=== PATIENT | female | born 1965 | race Caucasian/White ===

== ENCOUNTER → 2017-05-18 | Outpatient (CLI) | payer BC ==
[~2017-05-18] MED LIST: BND25X PO; PRED20TA PO; RTL20 PO
== END | disposition home or self-care (01) ==
LOC: C.PAPS 08:59
PROVIDERS: ATTEND Obstetrics & Gynecology
DX: Z01.419 Encounter for gynecological examination (general) (routine) without abnormal findings (principal)

== ENCOUNTER → 2017-11-25 | Outpatient (CLI) | payer BC ==
--- NOTE | 2017-11-25 17:31 | EXERCISE STRESS TEST ---
EXERCISE TREADMILL TEST STUDY REQUESTED BY: Dr. Sandro Coker. INDICATION: Atypical chest discomfort. RESULTS: BASELINE EKG - normal sinus rhythm with no significant ST abnormalities. Ventricular rate of 61. STRESS EKG - patient exercised for 12 minutes and 37 seconds achieving 14.5 mets. With this, her heart rate isaura from 69 to a maximum heart rate of 169 representing 100% of her maximum predicted heart rate. Her blood pressure isaura from 125/82 up to 151/76. She had no significant chest pain. This study was completed due to overall fatigue. With exercise, there were no significant ST abnormalities. There were no significant exercise-induced arrhythmias. IMPRESSION: 1. Negative exercise stress echocardiogram for ischemia. 2. Excellent functional capacity. The patient exercised 12 minutes 37 seconds achieving 14.5 mets. 3. No exercise induced chest pain. Normal hemodynamic response to exercise. 4. Blackmon treadmill score of 12 representing low risk study for adverse cardiac events. MTDD
== END | disposition home or self-care (01) ==
LOC: C.CPL 09:10
PROVIDERS: ATTEND Family Medicine
DX: R07.9 Chest pain, unspecified (principal)

== ENCOUNTER → 2018-05-01 | Outpatient (CLI) | payer BC ==
--- NOTE | 2018-05-01 16:54 | ECHOCARDIOGRAM REPORT ---
*NOTICE TO RECEIVING [employer] This information is strictly Confidential and protected under [place] law. [place] law prohibits you from making any further disclosure of this information unless further disclosure is expressly permitted by the written consent of the person to whom it pertains or is authorized by law. A general authorization for the release of medical or other information is not sufficient for this purpose. Hospital accepts no responsibility if the information is made available to any other person, INCLUDING THE PATIENT. Interpretation Summary * Name: KITA NEWSOME Study Date: 05/01/2018 12:58 PM BP: 119/57 mmHg * Patient Location: [facility] HR: 53 * : 1965 (M/d/yyyy) Gender: Female Height: 61 in * Age: 52 yrs Ethnicity: [place] Weight: 132 lb * Ordering Physician: Yasmeen Franklin * Referring Physician: Yasmeen Franklin D.O. * Performed By: Shayy Grubbs RDCS * * Reason For Study: Syncope * BSA: 1.6 m2 * -- Conclusions -- * 1. Normal LV size. Borderline concentric LVH. * 2. LVEF 60-65%. No regional wall motion abnormalities. * 3. Normal RV size and function. * 4. Apparent bicuspid aortic valve with mild aortic insufficiency. * 5. Borderline dilated ascending aorta (3.7 cm). * 6. Mild mitral regurgitation. * 7. Normal estimated PA and RA pressures. * 8. Compared with prior study on 11/03/2009: Apparent bicuspid aortic valve now better visualized. Procedure Details * A complete two-dimensional transthoracic echocardiogram was performed (2D, M-mode, Doppler and color flow Doppler). Left Ventricle * The left ventricle is grossly normal size. * There is borderline concentric left ventricular hypertrophy. * Ejection Fraction = 60-65%. Right Ventricle * The right ventricle is grossly normal size. * The right ventricular systolic function is normal as assessed by tricuspid annular plane systolic excursion (TAPSE) (normal >1.5 cm). Atria * The left atrial size is normal. * Borderline right atrial enlargement. * No ASD detected; PFO is not assessed. Mitral Valve * The mitral valve is grossly normal. * There is no mitral valve stenosis. * There is mild mitral regurgitation. Tricuspid Valve * There is trace tricuspid regurgitation. * Right ventricular systolic pressure is normal. Aortic Valve * A bicuspid aortic valve cannot be excluded. * No hemodynamically significant valvular aortic stenosis. * Mild aortic regurgitation. Pulmonic Valve * The pulmonary valve is inadequately visualized, but the Doppler data is adequate for interpretation. * There is no pulmonic valvular stenosis. * Trace pulmonic valvular regurgitation. Great Vessels * Borderline dilated ascending aorta. * Asc Aorta 3.7 cm Pericardium/Pleural * There is no pericardial effusion. Great Vessels * Normal inferior vena cava size and collapsability with sniff indicates a normal right atrial pressure of 3 mmHg MMode 2D Measurements and Calculations IVSd 0.77 cm IVSs 1.1 cm LVIDd 4.4 cm LVIDs 2.9 cm LVPWd 0.98 cm LVPWs 1.2 cm IVS/LVPW 0.78 FS 35.1 % EDV(Teich) 87.7 ml ESV(Teich) 31.0 ml EF(Teich) 64.6 % EDV(cubed) 85.2 ml ESV(cubed) 23.3 ml EF(cubed) 72.7 % % IVS thick 48.8 % % LVPW thick 19.1 % LV mass(C)d 123.3 grams LV mass(C)dI 77.9 grams/m\S\2 LV mass(C)s 96.0 grams LV mass(C)sI 60.6 grams/m\S\2 SV(Teich) 56.7 ml SI(Teich) 35.8 ml/m\S\2 SV(cubed) 61.9 ml SI(cubed) 39.1 ml/m\S\2 Ao root diam 2.3 cm Ao root area 4.1 cm\S\2 ACS 1.8 cm LA dimension 2.9 cm LA/Ao 1.3 LVOT diam 2.0 cm LVOT area 3.2 cm\S\2 LVAd ap4 29.3 cm\S\2 LVLd ap4 7.8 cm EDV(MOD-sp4) 90.5 ml EDV(sp4-el) 93.0 ml LVAs ap4 14.1 cm\S\2 LVLs ap4 6.5 cm ESV(MOD-sp4) 27.2 ml ESV(sp4-el) 25.9 ml EF(MOD-sp4) 69.9 % EF(sp4-el) 72.1 % LVAd ap2 27.8 cm\S\2 LVLd ap2 7.9 cm EDV(MOD-sp2) 82.0 ml EDV(sp2-el) 82.5 ml LVAs ap2 15.0 cm\S\2 LVLs ap2 6.5 cm ESV(MOD-sp2) 30.8 ml ESV(sp2-el) 29.4 ml EF(MOD-sp2) 62.5 % EF(sp2-el) 64.4 % LVLd %diff 1.5 % EDV(MOD-bp) 85.9 ml LVLs %diff 0.03 % ESV(MOD-bp) 29.0 ml EF(MOD-bp) 66.3 % SV(MOD-sp4) 63.2 ml SI(MOD-sp4) 39.9 ml/m\S\2 SV(MOD-sp2) 51.2 ml SI(MOD-sp2) 32.4 ml/m\S\2 SV(MOD-bp) 56.9 ml SI(MOD-bp) 36.0 ml/m\S\2 SV(sp4-el) 67.0 ml SI(sp4-el) 42.3 ml/m\S\2 SV(sp2-el) 53.1 ml SI(sp2-el) 33.5 ml/m\S\2 Doppler Measurements and Calculations MV E max catalina 111.1 cm/sec MV A max catalina 76.6 cm/sec MV E/A 1.5 MV dec time 0.20 sec Ao V2 max 197.5 cm/sec Ao max PG 15.6 mmHg Ao max PG (full) 11.9 mmHg Ao V2 mean 136.7 cm/sec Ao mean PG 8.3 mmHg Ao mean PG (full) 6.4 mmHg Ao V2 VTI 50.3 cm KIKI(I,A) 1.7 cm\S\2 KIKI(I,D) 1.7 cm\S\2 KIKI(V,A) 1.6 cm\S\2 KIKI(V,D) 1.6 cm\S\2 AI max catalina 337.6 cm/sec AI max PG 45.9 mmHg AI dec slope 145.2 cm/sec\S\2 AI P1/2t 680.7 msec LV V1 max PG 3.7 mmHg LV V1 mean PG 2.0 mmHg LV V1 max 96.5 cm/sec LV V1 mean 66.5 cm/sec LV V1 VTI 26.2 cm SV(Ao) 207.2 ml SI(Ao) 130.8 ml/m\S\2 SV(LVOT) 84.3 ml SI(LVOT) 53.2 ml/m\S\2 PA V2 max 111.7 cm/sec PA max PG 5.0 mmHg TR max catalina 196.7 cm/sec
== END | disposition home or self-care (01) ==
LOC: C.CPL 12:51
PROVIDERS: ATTEND Family Medicine
DX: R55 Syncope and collapse (principal)